=== PATIENT | male | born 1985 | race Caucasian/White ===

== ENCOUNTER 2017-06-11 14:27 | Emergency (ER) | payer MEDICARE ==
[~2017-06-11] VITALS: Ht 175.3 cm; Wt 89.0 kg
[2017-06-11 14:28] VITALS: BP 140/81; PULSE 75; RESP 16; TEMP 98.6; O2SAT 100
[2017-06-11] MEDS ORDERED: IOHEXOL 350 MG/ML 10 ML VIAL (for RAD DIAG) IVCONTRAST ONE (14:28)
[2017-06-11 17:10] VITALS: O2SAT 99
--- NOTE | 2017-06-11 17:12 | PD ---
HPI Chief Complaint: Abdominal Pain Time Seen by Provider: 17:01 Travel History International Travel<30 days: No Contact w/Intl Traveler<30days: No Traveled to known affect area: No History of Present Illness HPI Patient comes in for evaluation of epigastric abdominal pain ongoing for approximately 10 days. Patient reports pain is a burning cramping sensation in his epigastric area without radiation. Patient states he went to a different ER 4 days ago was evaluated for everything was told that everything is fine, but was given prescription for amoxicillin and Zofran. Patient states he follow -up with his primary care doctor today who recommended he come back to emergency department for further treatment and evaluation. Patient denies any chest pain, shortness of breath, back pain, vomiting, diarrhea, or loss or change in bladder. Pain is worse with laying flat. Patient feels symptoms continue to get worse. Patient reports initially was having some diarrhea has since stopped and he has not had a bowel movement since Wednesday. Patient reports continues to pass gas and has associated nausea. PFSH Past Medical History Anxiety: Yes Tetanus Vaccination: Unknown Influenza Vaccination: No ?: Not Social History Alcohol Use: No Tobacco Use: No Substance Use: No Allergies-Medications (Allergen,Severity, Reaction): Coded Allergies: No Known Allergies (Unverified , 06/11/17) Review of Systems Except as stated in HPI: all other systems reviewed are Neg Physical Exam Narrative GENERAL: Well-developed, overly nourished, in no acute distress, and non-ill appearing. SKIN: Focused skin assessment warm and dry. HEAD: Atraumatic. Normocephalic. EYES: Pupils equal and round. EOMI. No scleral icterus. No injection or drainage. ENT: No nasal bleeding or discharge. Mucous membranes pink and moist. NECK: Trachea midline. Supple. No nuclear rigidity. CARDIOVASCULAR: Regular rate and rhythm. No murmur appreciated. RESPIRATORY: No accessory muscle use. No respiratory distress. Clear to auscultation. Breath sounds equal bilaterally. GASTROINTESTINAL: Abdomen soft, nondistended, and voluntarily guarding. Hepatic and splenic margins not palpable. Normal bowel sounds 4. No pulsatile mass. Patient reports tenderness to palpation greatest in the epigastric area. MUSCULOSKELETAL: No obvious deformities. No clubbing. No cyanosis. No edema. Full range of motion. NEUROLOGICAL: Awake and alert. No obvious cranial nerve deficits. Motor grossly within normal limits. Normal speech. PSYCHIATRIC: Appropriate mood and affect; insight and judgment normal. Data Data Last Documented VS Vital Signs Date Time Temp Pulse Resp B/P (MAP) Pulse Ox O2 Delivery O2 Flow Rate FiO2 06/11/17 17:10 99 Room Air 06/11/17 16:39 18 06/11/17 14:28 98.6 75 Orders Orders Complete Blood Count With Diff (06/11/17 17:08) Comprehensive Metabolic Panel (06/11/17 17:08) Lipase (06/11/17 17:08) Ct Abd/Pel W Iv Contrast(Rout) (06/11/17 17:08) Iv Access Insert/Monitor (06/11/17 17:08) Ecg Monitoring (06/11/17 17:08) Oximetry (06/11/17 17:08) Ondansetron Inj (Zofran Inj) (06/11/17 17:15) Sodium Chloride 0.9% Flush (Ns Flush) (06/11/17 17:15) Famotidine Inj (Pepcid Inj) (06/11/17 17:15) Sodium Chlor 0.9% 1000 Ml Inj (Ns 1000 M (06/11/17 17:15) Oral Contrast - Adult (06/11/17 17:20) Diatrizoate Liq (Md Spencer Liq) (06/11/17 17:51) Diatrizoate Liq (Md Spencer Liq) (06/11/17 17:51) Labs Laboratory Tests Test 06/11/17 17:00 White Blood Count 4.8 TH/MM3 Red Blood Count 4.98 MIL/MM3 Hemoglobin 14.7 GM/DL Hematocrit 42.8 % Mean Corpuscular Volume 86.0 FL Mean Corpuscular Hemoglobin 29.5 PG Mean Corpuscular Hemoglobin Concent 34.3 % Red Cell Distribution Width 12.5 % Platelet Count 152 TH/MM3 Mean Platelet Volume 9.5 FL Neutrophils (%) (Auto) 58.2 % Lymphocytes (%) (Auto) 34.0 % Monocytes (%) (Auto) 6.1 % Eosinophils (%) (Auto) 1.4 % Basophils (%) (Auto) 0.3 % Neutrophils # (Auto) 2.8 TH/MM3 Lymphocytes # (Auto) 1.6 TH/MM3 Monocytes # (Auto) 0.3 TH/MM3 Eosinophils # (Auto) 0.1 TH/MM3 Basophils # (Auto) 0.0 TH/MM3 CBC Comment DIFF FINAL Differential Comment Blood Urea Nitrogen 6 MG/DL Creatinine 0.72 MG/DL Random Glucose 69 MG/DL Total Protein 8.1 GM/DL Albumin 4.3 GM/DL Calcium Level 9.0 MG/DL Alkaline Phosphatase 68 U/L Aspartate Amino Transf (AST/SGOT) 14 U/L Alanine Aminotransferase (ALT/SGPT) 22 U/L Total Bilirubin 0.5 MG/DL Sodium Level 140 MEQ/L Potassium Level 3.7 MEQ/L Chloride Level 105 MEQ/L Carbon Dioxide Level 27.1 MEQ/L Anion Gap 8 MEQ/L Estimat Glomerular Filtration Rate 126 ML/MIN Lipase 168 U/L MDM Medical Decision Making Medical Screen Exam Complete: Yes Emergency Medical Condition: Yes Differential Diagnosis SBO, constipation, obstipation, ileus, pancreatitis, metabolic disturbance, gastritis, nonspecific abdominal pain Narrative Course Patient was seen and examined. Initial laboratory and radiological studies were ordered. Patient is given IV Zofran for nausea and hydrated with IV fluids. Patient was signed out to Dennis Velasquez PA-C at the end of my shift. Please see his documentation for final diagnosis and disposition. Lasha Bhat Jun 11, 2017 17:12
[2017-06-11] MEDS ORDERED: FAMOTIDINE 20 MG/2 ML VIAL IV PUSH ONE (17:15)
[2017-06-11] MEDS ORDERED: ONDANSETRON HCL 4 MG/2 ML VIAL IVP ONE (17:15)
[2017-06-11] MEDS ORDERED: SODIUM CHLOR 0.9% 1000 ML INJ 1,000 ML IV ONE (17:15)
[2017-06-11] MEDS ORDERED: SODIUM CHLORIDE 0.9% FLUSH 10 ML FLUSH IV FLUSH PRN (17:15)
--- NOTE | 2017-06-11 17:39 | PD ---
Physical Exam Date Seen by Provider: Jun 11, 2017 Time Seen by Provider: 17:10 Narrative Patient presents for the evaluation of abdominal pain. This most intense pain is in the epigastrium but the abdominal pain is actually diffuse. It has been ongoing for 10 days. Associated with nausea. He has been evaluated at an outside emergency department within the last 10 days. He reports that everything was fine. His symptoms have persisted. Data Data Last Documented VS Vital Signs Date Time Temp Pulse Resp B/P (MAP) Pulse Ox O2 Delivery O2 Flow Rate FiO2 06/11/17 17:10 99 Room Air 06/11/17 16:39 18 06/11/17 14:28 98.6 75 Orders Orders Complete Blood Count With Diff (06/11/17 17:08) Comprehensive Metabolic Panel (06/11/17 17:08) Lipase (06/11/17 17:08) Ct Abd/Pel W Iv Contrast(Rout) (06/11/17 17:08) Iv Access Insert/Monitor (06/11/17 17:08) Ecg Monitoring (06/11/17 17:08) Oximetry (06/11/17 17:08) Ondansetron Inj (Zofran Inj) (06/11/17 17:15) Sodium Chloride 0.9% Flush (Ns Flush) (06/11/17 17:15) Famotidine Inj (Pepcid Inj) (06/11/17 17:15) Sodium Chlor 0.9% 1000 Ml Inj (Ns 1000 M (06/11/17 17:15) Oral Contrast - Adult (06/11/17 17:20) MDM Supervised Visit with STEFF: Yes Narrative Course I, Dr. Red, have reviewed the advance practice practitioner's documentation and am in agreement, met with the patient face to face, made the diagnosis, and the medical decision making was done by me. *My assessment and Findings: Patient has diffuse abdominal tenderness. Please see Jordan Bhat PA-C's note for results of laboratory and radiographic evaluation, ED course, final diagnosis and disposition Daniela Red MD Jun 11, 2017 17:39
[2017-06-11] MEDS ORDERED: DIATRIZOATE MEGLUM/DIATRIZOATE SOD 9 ML CUP ONE ×2 (17:51)
[2017-06-11 18:07] LABS: AUTOMATED NEUTROPHIL # 2.8 TH/MM3 (1.8-7.7); BASOPHIL % 0.3 % (0.0-2.0); EOSINOPHIL # 0.1 TH/MM3 (0-0.4); EOSINOPHIL % 1.4 % (0.0-4.0); HEMATOCRIT 42.8 % (39.0-51.0); HEMO FLAGS DIFF FINAL; LYMPHOCYTE # 1.6 TH/MM3 (1.0-4.8); MEAN CORPUSCULAR HEMOGLOBIN 29.5 PG (27.0-34.0); MEAN CORPUSCULAR HGB CONC 34.3 % (32.0-36.0); MONO % 6.1 % (0.0-8.0); NEUT % 58.2 % (16.0-70.0); PLATELET COUNT 152 TH/MM3 (150-450); RED BLOOD COUNT 4.98 MIL/MM3 (4.50-5.90); RED CELL DISTRIBUTION WIDTH 12.5 % (11.6-17.2); WHITE BLOOD COUNT 4.8 TH/MM3 (4.0-11.0)
[2017-06-11 18:32] LABS: ALT (GPT) 22 U/L (12-78); ANION GAP 8 MEQ/L (5-15); AST (GOT) 14 U/L (15-37); BICARBONATE 27.1 MEQ/L (21.0-32.0); BLOOD UREA NITROGEN 6 MG/DL (7-18); CHLORIDE 105 MEQ/L (98-107); GLOMERULAR FILTRATION RATE 126 ML/MIN (>89); POTASSIUM 3.7 MEQ/L (3.5-5.1); SODIUM (NA) 140 MEQ/L (136-145)
[2017-06-11 18:33] LABS: ALKALINE PHOSPHATASE 68 U/L (45-117); TOTAL BILIRUBIN ADULT 0.5 MG/DL (0.2-1.0)
--- NOTE | 2017-06-11 20:43 | RADRPT ---
EXAM DATE/TIME: 06/11/2017 19:58 [facility] COMPARISON: No previous studies available for comparison. INDICATIONS : Upper gastric pain for one week. IV CONTRAST: 70 cc Omnipaque 350 (iohexol) IV ORAL CONTRAST: Partial prescribed oral contrast ingested. RADIATION DOSE: 6.88 CTDIvol (mGy) MEDICAL HISTORY : None SURGICAL HISTORY : None. ENCOUNTER: Initial ACUITY: 4 - 6 days PAIN SCALE: 6/10 LOCATION: Bilateral upper quadrant TECHNIQUE: Volumetric scanning of the abdomen and pelvis was performed. Using automated exposure control and ad justment of the mA and/or kV according to patient size, radiation dose was kept as low as reasonably achievable to obtain optimal diagnostic quality images. DICOM format image data is available electro nically for review and comparison. FINDINGS: LOWER LUNGS: The visualized lower lungs are clear. LIVER: Homogeneous density without lesion. There is no dilation of the biliary tree. No calcified gallston es. SPLEEN: Normal size without lesion. PANCREAS: Within normal limits. KIDNEYS: Normal in size and shape. There is no mass, stone or hydronephrosis. ADRENAL GLANDS: Within normal limits. VASCULAR: There is no aortic aneurysm. BOWEL/MESENTERY: The stomach, small bowel, and colon demonstrate no acute abnormality. There is no free intraperitone al air or fluid. ABDOMINAL WALL: Within normal limits. RETROPERITONEUM: There is no lymphadenopathy. BLADDER: No wall thickening or mass. REPRODUCTIVE: Within normal limits. INGUINAL: There is no lymphadenopathy or hernia. MUSCULOSKELETAL: Within normal limits for patient age. CONCLUSION: 1. No acute finding on abdomen and pelvic CT. Dennis Schultz MD on June 11, 2017 at 20:37 Board Certified Radiologist. This report was verified electronically.
[2017-06-11] MEDS ORDERED: diphenhydrAMINE HCL ELIXIR 12.5 MG/5 ML CUP PO ONE (21:00)
[2017-06-11] MEDS ORDERED: LIDOCAINE VISCOUS 2% SOLN 15 ML UDC SWISH-SWAL ONE (21:00)
[2017-06-11] MEDS ORDERED: ALUMINUM/MAGNESIUM/SIMETH 30 ML CUP PO ONE (21:00)
[2017-06-11] MEDS ORDERED: HYOSCYAMINE 0.125 MG TAB PO ONE (21:00)
[2017-06-11] MEDS ORDERED: LEVS0.124 SL (21:48)
[2017-06-11] MEDS ORDERED: CARA1TAB6 PO (21:48)
--- NOTE | 2017-06-11 21:52 | PD ---
Physical Exam Date Seen by Provider: Jun 11, 2017 Time Seen by Provider: 21:49 Narrative GENERAL: This is a well-nourished, well-developed patient, in no apparent distress. SKIN: No rashes, ecchymoses or lesions. Warm and dry. HEAD: Atraumatic. Normocephalic. EYES: PERRL, EOMI, no discharge or injection. No scleral icterus. EARS: Clear NOSE: Nasal turbinates appear normal. THROAT: Mucosa pink and moist. Airway patent. NECK: Trachea midline. supple, moves head freely. LUNGS: Clear to auscultation. CV: Regular in rhythm. ABDOMEN: Soft, point tenderness in the epigastric area with mild diffuse tenderness. EXT: No clubbing cyanosis or edema. Data Data Last Documented VS Vital Signs Date Time Temp Pulse Resp B/P (MAP) Pulse Ox O2 Delivery O2 Flow Rate FiO2 06/11/17 17:10 99 Room Air 06/11/17 16:39 18 06/11/17 14:28 98.6 75 Orders Orders Complete Blood Count With Diff (06/11/17 17:08) Comprehensive Metabolic Panel (06/11/17 17:08) Lipase (06/11/17 17:08) Ct Abd/Pel W Iv Contrast(Rout) (06/11/17 17:08) Iv Access Insert/Monitor (06/11/17 17:08) Ecg Monitoring (06/11/17 17:08) Oximetry (06/11/17 17:08) Ondansetron Inj (Zofran Inj) (06/11/17 17:15) Sodium Chloride 0.9% Flush (Ns Flush) (06/11/17 17:15) Famotidine Inj (Pepcid Inj) (06/11/17 17:15) Sodium Chlor 0.9% 1000 Ml Inj (Ns 1000 M (06/11/17 17:15) Oral Contrast - Adult (06/11/17 17:20) Diatrizoate Liq ( Gastrocheryl Liq) (06/11/17 17:51) Diatrizoate Liq (Md Spencer Liq) (06/11/17 17:51) Iohexol 350 Inj (Omnipaque 350 Inj) (06/11/17 14:28) Hyoscyamine (Levsin) (06/11/17 21:00) Al-Mag Hy-Si 40-40-4 Mg/Ml Liq (Mag-Al P (06/11/17 21:00) Diphenhydramine Liq (Benadryl Liq) (06/11/17 21:00) Lidocaine 2% Viscous (Xylocaine 2% Visco (06/11/17 21:00) Labs Laboratory Tests Test 06/11/17 17:00 White Blood Count 4.8 TH/MM3 Red Blood Count 4.98 MIL/MM3 Hemoglobin 14.7 GM/DL Hematocrit 42.8 % Mean Corpuscular Volume 86.0 FL Mean Corpuscular Hemoglobin 29.5 PG Mean Corpuscular Hemoglobin Concent 34.3 % Red Cell Distribution Width 12.5 % Platelet Count 152 TH/MM3 Mean Platelet Volume 9.5 FL Neutrophils (%) (Auto) 58.2 % Lymphocytes (%) (Auto) 34.0 % Monocytes (%) (Auto) 6.1 % Eosinophils (%) (Auto) 1.4 % Basophils (%) (Auto) 0.3 % Neutrophils # (Auto) 2.8 TH/MM3 Lymphocytes # (Auto) 1.6 TH/MM3 Monocytes # (Auto) 0.3 TH/MM3 Eosinophils # (Auto) 0.1 TH/MM3 Basophils # (Auto) 0.0 TH/MM3 CBC Comment DIFF FINAL Differential Comment Blood Urea Nitrogen 6 MG/DL Creatinine 0.72 MG/DL Random Glucose 69 MG/DL Total Protein 8.1 GM/DL Albumin 4.3 GM/DL Calcium Level 9.0 MG/DL Alkaline Phosphatase 68 U/L Aspartate Amino Transf (AST/SGOT) 14 U/L Alanine Aminotransferase (ALT/SGPT) 22 U/L Total Bilirubin 0.5 MG/DL Sodium Level 140 MEQ/L Potassium Level 3.7 MEQ/L Chloride Level 105 MEQ/L Carbon Dioxide Level 27.1 MEQ/L Anion Gap 8 MEQ/L Estimat Glomerular Filtration Rate 126 ML/MIN Lipase 168 U/L [facility] Medical Record Reviewed: Yes Supervised Visit with STEFF: Yes Interpretation(s) Laboratory Tests Test 06/11/17 17:00 White Blood Count 4.8 TH/MM3 Red Blood Count 4.98 MIL/MM3 Hemoglobin 14.7 GM/DL Hematocrit 42.8 % Mean Corpuscular Volume 86.0 FL Mean Corpuscular Hemoglobin 29.5 PG Mean Corpuscular Hemoglobin Concent 34.3 % Red Cell Distribution Width 12.5 % Platelet Count 152 TH/MM3 Mean Platelet Volume 9.5 FL Neutrophils (%) (Auto) 58.2 % Lymphocytes (%) (Auto) 34.0 % Monocytes (%) (Auto) 6.1 % Eosinophils (%) (Auto) 1.4 % Basophils (%) (Auto) 0.3 % Neutrophils # (Auto) 2.8 TH/MM3 Lymphocytes # (Auto) 1.6 TH/MM3 Monocytes # (Auto) 0.3 TH/MM3 Eosinophils # (Auto) 0.1 TH/MM3 Basophils # (Auto) 0.0 TH/MM3 CBC Comment DIFF FINAL Differential Comment Blood Urea Nitrogen 6 MG/DL Creatinine 0.72 MG/DL Random Glucose 69 MG/DL Total Protein 8.1 GM/DL Albumin 4.3 GM/DL Calcium Level 9.0 MG/DL Alkaline Phosphatase 68 U/L Aspartate Amino Transf (AST/SGOT) 14 U/L Alanine Aminotransferase (ALT/SGPT) 22 U/L Total Bilirubin 0.5 MG/DL Sodium Level 140 MEQ/L Potassium Level 3.7 MEQ/L Chloride Level 105 MEQ/L Carbon Dioxide Level 27.1 MEQ/L Anion Gap 8 MEQ/L Estimat Glomerular Filtration Rate 126 ML/MIN Lipase 168 U/L Last 24 hours Impressions Abdomen/Pelvis CT 06/11/17 1708 Signed Impressions: Service Date/Time: Sunday, June 11, 2017 19:58 - CONCLUSION: 1. No acute finding on abdomen and pelvic CT. Dennis Schultz MD Differential Diagnosis . Narrative Course I was asked to review the patient's laboratory testing CAT scans. At this time the labs and CAT scan are unremarkable. Patient still complains of epigastric tenderness. He is given a GI cocktail of Maalox, Benadryl and lidocaine. He is also given 2 Levsin sublingual. Patient is reexamined and states that he started to feel better. I do not believe the patient has an acute abdomen. The patient is medically stable and can be discharged for follow-up as an outpatient. Patient is advised to see his doctor on Wednesday and consider GI follow-up. Diagnosis Primary Impression: Abdominal pain Qualified Codes: R10.13 - Epigastric pain Patient Instructions: General Instructions Additional Instruction: Rest. Clear liquids for 24 hours then bland food. Levsin and Carafate. Take 2 Zantac or Pepcid [id number] twice daily. Follow-up with your doctor on Wednesday. Consider follow-up with GI doctor for possible endoscopy. Return to the ER for emergencies. Med/Other Pt SpecificInfo: Prescription(s) given Scripts Sucralfate (Carafate) 1 Gram Tab 1 GM PO QID for Ulcer Prevention, #40 TAB 0 Refills On empty stomach Prov: Daniela Red MD 06/11/17 Hyoscyamine Odt (Levsin-SL) 0.125 Mg Subl 0.25 MG SL Q6H for Gastrointestinal disorders, #20 TAB.SL 0 Refills Prov: Daniela Red MD 06/11/17 Disposition: 01 DISCHARGE HOME Condition: Stable Dennis Ritter Jun 11, 2017 21:52
[2017-06-11 21:53] VITALS: BP 119/75; PULSE 68; RESP 16; O2SAT 99
[2017-06-11] MEDS ORDERED: CARA1SUS3 PO (22:15)
== END 2017-06-11 22:16 | disposition home or self-care (01) ==
LOC: NEPD 14:27
DX: R10.13 Epigastric pain (principal); R11.0 Nausea; F41.9 Anxiety disorder, unspecified; R19.7 Diarrhea, unspecified
CPT/HCPCS: 74177; 80053; 83690; 85025; 96361; 96374; 96375; 99285; J2405; J7030; Q9963; Q9967